=== PATIENT | female | born 2005 | race Asian ===

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

== ENCOUNTER 2023-03-10 10:45 | Outpatient (CLI) | payer OTHER, SELFPAY | END 2023-03-10 10:46 | disposition home or self-care (01) | LOC: NFLDREF 03-11 05:50 | PROVIDERS: PCP Physician Assistant Medical; Referring Provider Physician Assistant Medical; Visit Provider Advanced Practice Midwife | DX: Z11.3 Encounter for screening for infections with a predominantly sexual mode of transmission (principal); N80.9 Endometriosis, unspecified; N92.0 Excessive and frequent menstruation with regular cycle; N94.6 Dysmenorrhea, unspecified; N93.8 Other specified abnormal uterine and vaginal bleeding | CPT/HCPCS: 86592; 86703; 87491; 87591 ==

== ENCOUNTER 2023-04-25 19:37 | Emergency (ER) | payer OTHER, SELFPAY ==
[2023-04-25] VITALS (9 sets, daily range): BP systolic 88–126; BP diastolic 74–96; PULSE 85–91; RESP 18; TEMP 36.6; O2SAT 98–100; BMI 23.0
--- NOTE | 2023-04-25 19:57 | ED_ITS ---
HPI - Female Genitourinary General Time Seen by Provider: 19:57 Date Seen: 04/25/23 Chief complaint: Vaginal Bleeding Stated complaint: vaginal bleeding Time Seen by Provider: 04/25/23 19:40 Source: patient and RN notes reviewed Mode of arrival: ambulatory Limitations: no limitations History of Present Illness HPI Narrative: This 17yo female patient is coming in with concern of vaginal bleeding, has been passing clots, feels dizzy when standing. Was in the shower earlier and had cramping, then started bleeding all over. She is having significant bleeding, cramping. She had her IUD taken out recently, was put on oral contraceptives that she wasn't tolerating due to emotional side effects. She had went off the control pills. She started spotting a few days ago and the bleeding/cramping became heavy today. She does have endometriosis confirmed Laparoscopically here last year. Her current control pill is Amethia per the chart which contains norgestimate and estradiol. She was planning on talking to the OB Gyne in follow-up to get new control pills. She had IUD which was a Kyleena removed on 03/10/2023, she reported that she had had some bleeding the night before at that visit, have your than typical for her. There was significant cramping with this. In the past, she had had a Mirena IUD that worked for 6-9 months before she started returning to heavy and painful menses. She has tried OCPs and NuvaRing in the past with minimal success. For while after her surgery for her endometriosis for which she had fulguration of the endometriosis, she states she really did not have periods. elicited complaint: vaginal bleeding Related Data Home Medications Medication Instructions Recorded Confirmed levonorgestrel 17.5 mcg/24 hrs 1 device intrauterine ONCE 06/15/22 03/10/23 (5yrs) 19.5mg intrauterine device (Kyleena) Previous Rx's Medication Instructions Recorded fluoxetine 20 mg tablet 20 mg PO QDAY #30 tabs 08/27/22 L norgest/E estradiol-E estrad 1 tab PO ONCE #182 ea 03/10/23 0.15 mg-30 mcg (84)/10 mcg(7) tabs,3mos (Amethia) norethindrone acetate 5 mg tablet 5 mg PO DAILY #20 tabs 04/25/23 tranexamic acid 650 mg tablet 650 mg PO TID #15 tabs 04/25/23 Allergies Allergy/AdvReac Type Severity Reaction Status Date / Time Penicillins Allergy Unknown Verified 03/10/23 09:55 Review of Systems Narrative: As per HPI. [facility] Medical History (Updated 04/25/23 @ 21:04 by Lin Montiel MD) Family history of alpha thalassemia ?Z83.2 - Family history of diseases of the blood and blood-forming organs and certain disorders involving the immune mechanism (ICD-10) Iron deficiency anemia ?D50.9 - Iron deficiency anemia, unspecified (ICD-10) Surgical History Status post laparoscopy (11/21/21) ?Z98.890 - Other specified postprocedural states (ICD-10) Family History Family/Other Anemia Cancer Thyroid disease Mother Anxiety disorder Depression Diabetes Maternal Grandmother Diabetes Sister Family history of other blood disorders 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 college at [employer] on 12/08/2021 Highest level of school completed/degree received: some college, no degree Smoking Status: Never smoker Do you use any of these nicotine containing products: None Second hand tobacco smoke exposure: No How often do you have a drink containing alcohol: never AUDIT-C Alcohol total score: 0 Non-prescribed substance use: denies use Little interest or pleasure in doing things: more than half the days Feeling down, depressed, or hopeless: more than half the days Are you currently sexually active: Yes Are you using contraception or practicing any form of control: Yes service: No Exam 2 Const: Vital Signs, click to edit/add: Vital Signs - 24 hr 04/25/23 19:45 04/25/23 19:49 04/25/23 19:50 Temperature 97.9 F Pulse Rate 87 86 Pulse Rate [Pulse Oximeter] 90 Respiratory Rate 18 Blood Pressure 104/74 Blood Pressure [Ri ght Upper Arm] 126/96 H Pulse Oximetry 99 99 100 Oxygen Delivery Me thod Room Air 04/25/23 20:00 04/25/23 20:08 04/25/23 20:10 Temperature Pulse Rate 87 91 Pulse Rate [Pulse Oximeter] Respiratory Rate Blood Pressure 88/75 L 109/80 Blood Pressure [Ri ght Upper Arm] Pulse Oximetry 99 98 Oxygen Delivery Me thod 04/25/23 20:22 04/25/23 20:36 04/25/23 20:36 Temperature 97.9 F Pulse Rate 85 Pulse Rate [Pulse Oximeter] Respiratory Rate Blood Pressure Blood Pressure [Ri ght Upper Arm] Pulse Oximetry 98 98 Oxygen Delivery Me thod 17-year-old female is alert, interactive, sitting up on the exam bed in room 7. Face atraumatic, speaking in complete sentences, very well kept. Lungs are clear, good air entry, no wheezing or crackles. CV regular rate rhythm, no murmur, normal S1-S2, no S3-S4. She complains of mild abdominal tenderness diffusely when I palpate, no masses. Bowel sounds seem normal. Pelvic exam declined at this point. She did just have Documenting provider has reviewed patient's vital signs: yes Course Course ED Course: Will place an IV and give her 1L of NS, treat cramping with Toradol 15mg IV. She will be monitored on pulse oximetry. Will check CBC, confirm negative HCG status. Will be talking to OB regarding options for treatment of her dysfunctional uterine bleeding. We have reviewed that imaging is not felt necessary. We have a patient that has had surgical diagnosis of endometriosis, had a recent in clinic pelvic exam in STI screening. Reevaluation(s) Time of Reevaluation #1: 20:55 Reevaluation #1: Reviewed my conversation with the bag press operator with Anila. We are going to see if we have the norethindrone here, otherwise may give her 1st dose of Provera here and switch to the norethindrone tomorrow. I will prescribe her the Lysteda that was recommended. she seems quite stable. Labs show reassuring hemoglobin, no confirmed. Vital Signs Vital signs: Initial Vital Signs Temperature 97.9 F 04/25/23 19:45 Temperature Source Temporal Artery Scan 04/25/23 19:45 Pulse Rate 90 04/25/23 19:45 Respiratory Rate 18 04/25/23 19:45 Blood Pressure 126/96 H 04/25/23 19:45 Blood Pressure Mean 106 H 04/25/23 19:45 Blood Pressure Position Sitting 04/25/23 19:45 Pulse Oximetry 99 04/25/23 19:45 Oxygen Delivery Method Room Air 04/25/23 19:45 Vital Signs Temperature 97.9 F 04/25/23 19:45 Pulse Rate 90 04/25/23 19:45 Respiratory Rate 18 04/25/23 19:45 Blood Pressure 126/96 H 04/25/23 19:45 Pulse Oximetry 99 04/25/23 19:45 Oxygen Delivery Method Room Air 04/25/23 19:45 Temperature 97.9 F 04/25/23 20:22 Pulse Rate 85 04/25/23 20:36 Respiratory Rate 18 04/25/23 19:45 Blood Pressure 109/80 04/25/23 20:10 Pulse Oximetry 98 04/25/23 20:36 Oxygen Delivery Method Room Air 04/25/23 19:45 Medications Administered Medications: Generic Name Dose Route Start Last Admin Trade Name Freq PRN Reason Stop Dose Admin Sodium Chloride 1,000 mls @ 1,000 mls/hr 04/25/23 20:05 04/25/23 20:21 0.9 % Sodium Chloride 1000 Ml IV 04/25/23 21:04 1,000 mls/hr .Q1H FACUNDO Administration Ketorolac Tromethamine 15 mg 04/25/23 20:04 04/25/23 20:22 Ketorolac 15 Mg/Ml Inj IVP 04/25/23 20:05 15 mg ONCE ONE Administration MDM - Female Genitourinary Lab Data Attestation: I reviewed the patient's lab results. Labs: Lab Results 04/25/23 04/25/23 Range/Units 20:10 20:15 WBC 7.52 (4.50-11.00) K/uL RBC 6.20 H (4.00-5.20) m/uL Hgb 12.7 (12.0-16.0) gm/dL Hct 40.8 (33.0-51.0) % MCV 66 L (80-100) fL MCH 21 L (26-34) pg MCHC 31 L (32-36) gm/dL RDW Coeff of Clive 15.2 (11.5-15.5) % Plt Count 259 (140-440) K/uL Neut % (Auto) 53.3 (42.0-72.0) % Lymph % (Auto) 36.8 (20-44) % Hughes % (Auto) 8.0 (0.0-11.0) % Eos % (Auto) 1.5 (0.0-7.0) % Baso % (Auto) 0.4 (0.0-3.0) % Neut # (Auto) 4.01 (1.7-7.0) K/uL Lymph # (Auto) 2.77 (0.90-2.90) K/uL Hughes # (Auto) 0.60 (0.00-0.90) K/UL Eos # (Auto) 0.11 (0.00-0.50) K/uL Baso # (Auto) 0.03 (0.00-0.30) K/uL Abs Immat Gran (auto) 0.00 (0.00-0.30) K/uL Imm/Tot Granulo (auto) 0.0 % HCG, Qual Negative (Negative) Urine Color Yellow (Yellow) Urine Appearance Cloudy A (Clear) Urine pH 7.5 (5.0-8.5) Ur Specific [place] 1.020 (1.000-1.030) Urine Protein Negative (Negative) Urine Glucose (UA) Negative (Negative) Urine Ketones Negative (Negative) Urine Blood Trace-intact A (Negative) Urine Nitrite Negative (Negative) Urine Bilirubin Negative (Negative) Urine Urobilinogen 1.0 (0.2-1.0) Ur Leukocyte Esterase Negative (Negative) Urine RBC 0-2 (0-2) Urine WBC 0-2 (0-5) Ur Squamous Epith Cells None (None-Few) Amorphous Sediment Moderate A (None) Urine Bacteria None (None) Discharge Plan Discharge Clinical Impression: DUB (dysfunctional uterine bleeding), Endometriosis Patient Disposition: Home, Self-Care Condition: Stable Instructions: Endometriosis (ED), Abnormal (Dysfunctional) Uterine Bleeding (ED) Additional Instructions: You were given Provera here in the ER tonight. Tomorrow you will start norethindrone 5 mg and take daily to help suppress menstrual flow. I have provided 20 tablets, bag press operator did want you to stay on this until you see them. She also recommended treating with Lysteda to help suppress the menstrual flow. She has requested that you follow-up with [facility], phone number to call to make the appointment is [phone]. if you do have the unfortunate complication of increasing or worsening bleeding, return for further evaluation. It is very important that you understand that the medicines that you will be on are not protection against , this progesterone type hormone is only to help suppress the bleeding, does not suppressed . You will need an alternate form such as barrier protection to protect against at this point. Activity Level: Activity as Tolerated Prescriptions: New norethindrone acetate 5 mg tablet 5 mg PO DAILY Qty: 20 0RF tranexamic acid 650 mg tablet 650 mg PO TID Qty: 15 0RF No Action Kyleena 17.5 mcg/24 hrs (5 yrs) 19.5 mg intrauterine device 1 device intrauterine ONCE Rx Instructions: as a single dose L norgest/e.estradiol-e.estrad [Amethia] 0.15 mg-30 mcg (84)/10 mcg (7) tablets,dose pack,3 month 1 tab PO ONCE Qty: 182 3RF fluoxetine 20 mg tablet 20 mg PO QDAY Qty: 30 0RF Rx Instructions: take 1 tablet daily Follow Up/Referrals: Zahraa Arambula PA-C [Primary Care Provider] - Stand Alone Forms: [employer] Info Instructions
[2023-04-25 20:20] LABS: Basophils Absolute Auto 0.03 K/uL (0.00-0.30); Basophils Percent Auto 0.4 % (0.0-3.0); Eosinophils Absolute Auto 0.11 K/uL (0.00-0.50); Eosinophils Percent Auto 1.5 % (0.0-7.0); Hematocrit 40.8 % (33.0-51.0); Hemoglobin* 12.7 gm/dL (12.0-16.0); Lymphocytes Absolute Auto 2.77 K/uL (0.90-2.90); Lymphocytes Percent Auto 36.8 % (20-44); Mean Corpuscular HGB Conc 31 gm/dL (32-36); Mean Corpuscular Hemoglobin 21 pg (26-34); Mean Corpuscular Volume 66 fL (80-100); Neutrophils Absolute Auto 4.01 K/uL (1.7-7.0); Neutrophils Percent Auto 53.3 % (42.0-72.0); Platelet Count* 259 K/uL (140-440); RDW Coefficient of Variation % 15.2 % (11.5-15.5); White Blood Count* 7.52 K/uL (4.50-11.00)
[2023-04-25 20:21] LABS: Slide Review Reflex No
[2023-04-25] MEDS: 0.9 % SODIUM CHLORIDE 1000 ml 1,000 ML IV (20:21)
[2023-04-25 20:22] LABS: Appearance Urine Cloudy (Clear); Bilirubin Urine Negative (Negative); Blood Urine Trace-intact (Negative); Color Urine Yellow (Yellow); Glucose Urine Negative (Negative); Ketones Urine Negative (Negative); Leukocyte Esterase Urine Negative (Negative); Nitrite Urine Negative (Negative); Protein Urine Negative (Negative); pH Urine 7.5 (5.0-8.5)
[2023-04-25] MEDS: KETOROLAC 15 MG/ML inj IVP (20:22)
[2023-04-25 20:41] LABS: Amorphous Sediment Urine Moderate; RBC Urine 0-2 (0-2); WBC Urine 0-2 (0-5)
[2023-04-25 20:45] LABS: HCG Qualitative Serum* Negative (Negative)
[2023-04-25] MEDS: MEDROXYPROGESTERONE 5 MG TABLET 10 MG PO (21:22)
== END 2023-04-25 21:29 | disposition home or self-care (01) ==
PROVIDERS: Emergency Provider Family Medicine; PCP Physician Assistant Medical
DX: N93.8 Other specified abnormal uterine and vaginal bleeding (principal); N80.42 Endometriosis of rectovaginal septum with involvement of vagina
CPT/HCPCS: 36415; 81001; 84703; 85025; 94761; 96374; 99283; 99284; A9270; J1885; J7030

== ENCOUNTER 2024-02-03 22:45 | Emergency (ER) | payer OTHER, SELFPAY ==
[2024-02-03 22:57] VITALS: BP 122/83; PULSE 84; RESP 16; TEMP 37.2; O2SAT 99; BMI 25.4
--- NOTE | 2024-02-03 23:30 | ED.GENADULT ---
HPI - General Adult General Date Seen: 02/03/24 Chief complaint: Unspecified Complaint, Adult Stated complaint: lump in R breast, chest pain Time Seen by Provider: 02/03/24 23:29 Source: patient Mode of arrival: ambulatory Limitations: no limitations History of Present Illness HPI narrative: Patient is a 18-year-old female presenting to the emergency department for right breast pain. She states the pain started earlier this week has been gradually getting worse. She denies symptoms like this before. Has not had any fevers or chills. Does states she had her nipples pierced 6 months ago and took them out this week. When she took come out there was some yellowish discharge coming from the worst areas. No other concerns noted. Pain does seem to radiate to her mid chest to her back but she states that all his coming from the breast and radiating out. Breast is tender to palpation. No other concerns noted. Denies shortness of breath, weakness, numbness, headaches, vision changes, diarrhea, constipation. No other concerns noted at this time. Related Data Previous Rx's ?Medication ?Instructions ?Recorded fluoxetine 20 mg tablet 20 mg PO QDAY #30 tabs 08/27/22 norethindrone acetate 5 mg tablet 5 mg PO DAILY #20 tabs 04/25/23 tranexamic acid 650 mg tablet 650 mg PO TID #15 tabs 04/25/23 Allergies Allergy/AdvReac Type Severity Reaction Status Date / Time Penicillins Allergy Unknown Verified 02/03/24 22:57 Review of Systems Status of ROS: Reports: 10 or more systems reviewed and unremarkable except as noted in History and below PFSH PFSH Medical History Family history of alpha thalassemia ?Z83.2 - Family history of diseases of the blood and blood-forming organs and certain disorders involving the immune mechanism (ICD-10) Iron deficiency anemia ?D50.9 - Iron deficiency anemia, unspecified (ICD-10) Surgical History Status post laparoscopy (11/21/21) ?Z98.890 - Other specified postprocedural states (ICD-10) Family History Family/Other Anemia Cancer Thyroid disease Mother Anxiety disorder Depression Diabetes Maternal Grandmother Diabetes Sister Family history of other blood disorders 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 at [employer] in [place] on 12/08/2021 Highest level of school completed/degree received: some college, no degree Smoking Status: Never smoker Do you use any of these nicotine containing products: None Second hand tobacco smoke exposure: No How often do you have a drink containing alcohol: never AUDIT-C Alcohol total score: 0 Non-prescribed substance use: denies use Little interest or pleasure in doing things: more than half the days Feeling down, depressed, or hopeless: more than half the days Are you currently sexually active: Yes Are you using contraception or practicing any form of control: Yes service: No Exam Narrative: Exam Narrative: Const: Well-nourished, Well-developed, in mild distress Eyes: PERRL, no conjunctival injection, and symmetrical lids HENT: Atraumatic external nose and ears. Moist mucous membranes. Neck: Symmetric, trachea midline, No thyromegaly. CVS: RRR, No murmurs or gallops. Peripheral pulses 2+ and equal in all extremities RESP: Unlabored respiratory effort. Clear to auscultation bilaterally. Breast: Bilateral breast tenderness with some warmth felt just superior to be each nipple more on the right than the left. Does have tenderness throughout the breast. MSK:Extremities w/o deformity, Normal Active ROM. No chest tenderness Skin: Warm, Dry. No rashes or lesions. Neuro: Normal Muscle tone, No focal neurological deficits. Psych: Awake, Alert, & Oriented x3. Appropriate mood and affect. Const: Vital Signs, click to edit/add: Vital Signs - 24 hr 02/03/24 22:57 Temperature 98.9 F Pulse Rate [Pulse Oximeter] 84 Respiratory Rate 16 Blood Pressure [Ri ght Upper Arm] 122/83 Pulse Oximetry 99 Oxygen Delivery Me thod Room Air Course Vital Signs Vital signs: Initial Vital Signs Temperature 98.9 F 02/03/24 22:57 Temperature Source Temporal Artery Scan 02/03/24 22:57 Pulse Rate 84 02/03/24 22:57 Respiratory Rate 16 02/03/24 22:57 Blood Pressure 122/83 02/03/24 22:57 Blood Pressure Mean 96 02/03/24 22:57 Blood Pressure Position Sitting 02/03/24 22:57 Pulse Oximetry 99 02/03/24 22:57 Oxygen Delivery Method Room Air 02/03/24 22:57 Vital Signs Temperature 98.9 F 02/03/24 22:57 Pulse Rate 84 02/03/24 22:57 Respiratory Rate 16 02/03/24 22:57 Blood Pressure 122/83 02/03/24 22:57 Pulse Oximetry 99 02/03/24 22:57 Oxygen Delivery Method Room Air 02/03/24 22:57 Temperature 98.9 F 02/03/24 22:57 Pulse Rate 84 02/03/24 22:57 Respiratory Rate 16 02/03/24 22:57 Blood Pressure 122/83 02/03/24 22:57 Pulse Oximetry 99 02/03/24 22:57 Oxygen Delivery Method Room Air 02/03/24 22:57 Medical Decision Making MDM Narrative Medical decision making narrative: Patient is a 18-year-old female presenting for breast pain. Symptoms have been going on for the past few days. She did recently take out some piercings that had some knee otherwise discharged at that time. Considering there is warmth felt to the breast compared to the rest of her and there is some tenderness near the is warmth area I am concerned she could be having some mastitis. Well less common and not could of recur due to the nipple piercings. I will start her on Augmentin. She does states she has a follow-up appointment this upcoming Wednesday. I informed her to keep that. She will return for any new worsening symptoms. Considering all the symptoms seem related to the breast I do not believe a need to do workup for chest pain other than EKG which showed no concerning findings. ECG Data Attestation: I personally reviewed and interpreted this ECG as follows: Prior ECG tracings: not available for review Interpretation: Normal sinus rhythm with rate 62 beats per minute, normal intervals, normal axis, no ST or T-wave abnormalities Discharge Plan Discharge Clinical Impression: Breast pain Instructions: Breast Care for the Non- Mother (ED) Additional Instructions: Follow-up with your primary care provider next week as she previously scheduled. Take the antibiotics as directed. The Augmentin was prescribed through [facility]. Return to the emergency department for any new or worsening symptoms. Prescriptions: No Action norethindrone acetate 5 mg tablet 5 mg PO DAILY Qty: 20 0RF tranexamic acid 650 mg tablet 650 mg PO TID Qty: 15 0RF fluoxetine 20 mg tablet 20 mg PO QDAY Qty: 30 0RF Rx Instructions: take 1 tablet daily Follow Up/Referrals: Zahraa Arambula PA-C [Primary Care Provider] - Stand Alone Forms: [employer] Info Instructions
== END 2024-02-03 23:51 | disposition home or self-care (01) ==
LOC: ED 23:38
PROVIDERS: Emergency Provider Student in an Organized Health Care Education/Training Program; PCP Physician Assistant Medical; Visit Provider Student in an Organized Health Care Education/Training Program
DX: N64.4 Mastodynia (principal)
CPT/HCPCS: 99282; 99283; 99284

== ENCOUNTER 2024-02-10 11:20 | Outpatient (CLI) | payer OTHER, SELFPAY ==
--- NOTE | 2024-02-10 11:30 | CRLHL7_ITS ---
For Patients: As a result of the Cures Act, medical imaging exams and procedure reports are released immediately into your electronic medical record. You may view this report before your referring provider. If you have questions, please contact your health care provider. BILATERAL BREAST ULTRASOUND CLINICAL HISTORY: BILATERAL breast mastodynia. COMPARISON: None. TECHNIQUE: Real-time ultrasound imaging of BILATERAL breasts with imaging documentation. FINDINGS: Targeted RIGHT breast ultrasound performed at 12 o`clock 5 cm from the nipple and 10 o`clock 8 cm from the nipple. Normal dense tissue is present. No fluid collection or mass. Targeted LEFT breast ultrasound performed at 2 o`clock 8 cm from the nipple and 10 o`clock 4 cm from the nipple. Normal dense tissue is present. No abscess or fluid collection. No mass. IMPRESSION: Normal BILATERAL dense breast tissue. No suspicious findings. No abscess. RECOMMENDATIONS: Clinical follow-up. Results and recommendations were discussed with the patient at the time of the exam. BI-RADS Category 2: Benign A lay language report of this examination will be provided to the patient. Dictated by Samuel Bennett MD @ 02/10/2024 12:24:17 PM /sp SP/Dictated by: Samuel Bennett MD @ 02/10/2024 12:24:00 PM (Electronically Signed)
== END 2024-02-10 11:21 | disposition home or self-care (01) ==
PROVIDERS: PCP Physician Assistant Medical; Visit Provider Registered Nurse
DX: N64.4 Mastodynia (principal)
CPT/HCPCS: 76642

== ENCOUNTER 2024-02-23 15:00 | Outpatient (CLI) | payer OTHER, SELFPAY ==
[2024-02-23 21:49] LABS: Bacterial Vaginosis* Negative (Negative); Candida glab/krus NOT DETECTED (No Detected); Candida species NOT DETECTED (No Detected); Trichomonas vaginalis NOT DETECTED (No Detected)
== END 2024-02-23 15:01 | disposition home or self-care (01) ==
PROVIDERS: PCP Physician Assistant Medical; Visit Provider Registered Nurse
DX: N93.9 Abnormal uterine and vaginal bleeding, unspecified (principal); R10.2 Pelvic and perineal pain
CPT/HCPCS: 81513; 84443; 87481; 87491; 87591; 87661

== ENCOUNTER 2024-03-17 09:02 | Outpatient (CLI) | payer OTHER, SELFPAY ==
--- NOTE | 2024-03-17 09:15 | CRLHL7_ITS ---
For Patients: As a result of the Century Cures Act, medical imaging exams and procedure reports are released immediately into your electronic medical record. You may view this report before your referring provider. If you have questions, please contact your health care provider. CLINICAL HISTORY: pelvic pain, hx of endometriosis, AUB TECHNIQUE: 2D hunter scale ultrasound. In addition color Doppler and spectral Doppler analysis was performed of the pelvis using a transabdominal and transvaginal approach. Comparison 10/29/2021 FINDINGS: The myometrium has a normal uniform echotexture. Uterus measures 5.4 x 2.0 x 3.8 cm. The endometrial lining appears normal and measures 4.6 mm in thickness. The right ovary measures 3.9 x 2.0 x 2.4 cm in size and the left ovary measures 3.8 x 1.4 x 1.7 cm. The ovaries demonstrate normal arterial and venous blood flow on color Doppler and spectral Doppler analysis. There are no suspicious fluid collections within the cul-de-sac. IMPRESSION: Unremarkable pelvic ultrasound. Dictated by Samuel Bennett MD @ 03/18/2024 6:10:23 PM (Electronically Signed)
== END 2024-03-17 09:03 | disposition home or self-care (01) ==
LOC: US 09:03
PROVIDERS: PCP Physician Assistant Medical; Visit Provider Registered Nurse
DX: R10.2 Pelvic and perineal pain (principal)
CPT/HCPCS: 76830; 76856; 93976

== ENCOUNTER 2025-01-16 11:35 | Outpatient (CLI) | payer OTHER, SELFPAY ==
[2025-01-16 15:15] LABS: Chlamydia DNA Amplified* NOT DETECTED (No Detected); GC DNA Amplified* NOT DETECTED (No Detected)
[2025-01-19 09:19] LABS: Pap Test Digital Imaging Done
== END 2025-01-16 11:36 | disposition home or self-care (01) ==
PROVIDERS: PCP Physician Assistant Medical; Visit Provider Obstetrics & Gynecology
DX: Z12.4 Encounter for screening for malignant neoplasm of cervix (principal); Z11.3 Encounter for screening for infections with a predominantly sexual mode of transmission
CPT/HCPCS: 87491; 87591; 87624; 87625; 88141; 88142; 88175